=== PATIENT | male | born 1955 | race Caucasian/White ===

== ENCOUNTER 2017-03-19 09:46 | Day surgery (SDC) | payer BC, OTHER ==
[2017-03-15 14:57] VITALS: BMI 33.2
[~2017-03-19 09:46] MED LIST: LACTATED RINGERS 1,000 ML IV SCH
[2017-03-19 10:42] VITALS: RESP 16; TEMP 98.3
[2017-03-19] MEDS ORDERED: LIDOCAINE 1% 20 ML VIAL (10MG/ML) FOR IV START SQ ONE (10:45)
[2017-03-19] MEDS ORDERED: PROPOFOL 10 MG/ML 20 ML VIAL IV ONE (11:39)
[2017-03-19] MEDS ORDERED: LIDOCAINE 1% INJ 10MG/ML (20 ML MDV) ONE (11:39)
--- NOTE | 2017-03-19 11:59 | P.GSHP ---
History of Present Illness H&P Date: 03/19/17 Chief Complaint: Screening colonoscopy This is a 61-year-old male referred from Dr. stinson. Patient safe for screening colonoscopy. He has never had a colonoscopy before. Past Medical History Past Medical History: Hyperlipidemia History of Any Multi-Drug Resistant Organisms: None Reported Past Surgical History: Appendectomy, Back Surgery Additional Past Surgical History / Comment(s): Colonoscopy Past Anesthesia/Blood Transfusion Reactions: No Reported Reaction Smoking Status: Current every day smoker - Past Family History Sister(s) Family Medical History: Cancer Medications and Allergies Home Medications Medication Instructions Recorded Confirmed Type Fenofibrate Nanocrystallized 145 mg PO HS 03/15/17 03/15/17 History [Tricor] PARoxetine HCL [Paxil] 20 mg PO DAILY 03/15/17 03/15/17 History Rosuvastatin [Crestor] 20 mg PO HS 03/15/17 03/19/17 History Allergies Allergy/AdvReac Type Severity Reaction Status Date / Time No Known Allergies Allergy Verified 03/19/17 10:39 Surgical - Exam Vital Signs Temp Pulse Resp BP Pulse Ox 98.3 F 95 16 133/67 96 03/19/17 10:41 03/19/17 10:41 03/19/17 10:41 03/19/17 10:41 03/19/17 10:41 - General well developed, no distress - Eyes PERRL - ENT normal pinna - Neck no masses - Respiratory normal expansion - Cardiovascular Rhythm: regular - Abdomen Abdomen: soft, non tender Assessment and Plan Plan: We'll perform screening colonoscopy.
--- NOTE | 2017-03-19 12:10 | P.OP ---
Date of Procedure: 03/19/17 Preoperative Diagnosis: Screening colonoscopy Postoperative Diagnosis: Diverticulosis Procedure(s) Performed: Colonoscopy Implants: Anesthesia: MAC Surgeon: Gui Tan Pathology: none sent Condition: stable Disposition: PACU Indications for Procedure: Operative Findings: Description of Procedure: The patient's placed on the endoscopy table in the lateral position. He received IV sedation. Digital rectal exam was performed which revealed no abnormalities. The prostate was symmetric without nodules. The flexible colonoscope was then placed patient anus passed throughout the entire colon. The ileocecal valve sutures. The cecum, ascending, transverse colon appeared normal. In the descending and sigmoid colon there were mild diverticular changes. The scope was then brought back the rectum and this appeared normal. Scope was withdrawn for patient.
[2017-03-19 12:41] VITALS: BP 123/73; PULSE 73
== END 2017-03-19 12:51 | disposition home or self-care (01) ==
LOC: ORWHC2ENDO 09:46
PROVIDERS: ATTEND Surgery
DX: Z12.11 Encounter for screening for malignant neoplasm of colon (principal); K57.30 Diverticulosis of large intestine without perforation or abscess without bleeding; E78.5 Hyperlipidemia, unspecified; F17.200 Nicotine dependence, unspecified, uncomplicated; Z79.899 Other long term (current) drug therapy; Z79.82 Long term (current) use of aspirin
CPT/HCPCS: J2001; J2704; G0121; 45378